=== PATIENT | female | born 2000 | race Caucasian/White ===

== ENCOUNTER 2018-11-04 10:16 | Emergency (ER) | payer MEDICAID ==
[~2018-11-04] VITALS: Ht 149.9 cm; Wt 58.0 kg
[2018-11-04 11:29] LABS: URINE HCG NEGATIVE (NEG)
[2018-11-04 11:40] LABS: CLARITY,URINE CLOUDY (Clear); COLOR,URINE YELLOW (Yellow); GLUCOSE, URINE NEGATIVE (Neg); KETONES,URINE NEGATIVE (Neg); LEUKOCYTE ESTERASE ,URINE MODERATE (Neg); NITRITES, URINE NEGATIVE (Neg); OCCULT BLOOD,URINE MODERATE (Neg); PROTEIN,URINE NEGATIVE (Neg); UROBILINOGEN,URINE 0.2 E.U/dL (0.2-1.0)
[2018-11-04 11:54] LABS: UA COLLECTION TYPE CLN CATCH MIDSTREAM
[2018-11-04 11:57] LABS: BACTERIA,URINE 3+ /HPF (Neg); MUCUS STRANDS MODERATE /LPF (Neg); SQUAMOUS EPITHELIAL CELL,UR MANY /LPF (FEW); WBC,URINE 50-100 /HPF (0-4)
--- NOTE | 2018-11-04 12:26 | NUR ---
PT STATES HX OF HYPOTENTION AND IS ASYMPTOMATIC. DR LIMON AWARE OF BP.
[2018-11-04 12:50] VITALS: BP 100/57
== END 2018-11-04 13:08 | disposition home or self-care (01) ==
LOC: ER 10:16
DX: N93.9 Abnormal uterine and vaginal bleeding, unspecified (principal); I10 Essential (primary) hypertension; Z96.9 Presence of functional implant, unspecified
CPT/HCPCS: 81001; 81025; 87210; 99283

== ENCOUNTER 2018-12-07 21:50 | Emergency (ER) | payer MEDICAID ==
[~2018-12-07] VITALS: Ht 149.9 cm; Wt 55.9 kg
--- NOTE | 2018-12-07 23:21 | NUR ---
[facility] orders pending for patient.
[2018-12-07 23:31] VITALS: BP 100/53
== END 2018-12-07 23:34 | disposition home or self-care (01) ==
LOC: ER 21:51
DX: S60.413A Abrasion of left middle finger, initial encounter (principal); W22.8XXA Striking against or struck by other objects, initial encounter; Y93.89 Activity, other specified; Y92.89 Other specified places as the place of occurrence of the external cause; Y99.8 Other external cause status
CPT/HCPCS: 29130; 73130; 99283

== ENCOUNTER 2019-03-20 15:53 | Emergency (ER) | payer MEDICAID, OTHER ==
[~2019-03-20] VITALS: Ht 149.9 cm; Wt 53.2 kg
[2019-03-20] MEDS ORDERED: morphine 4 MG/ML inj SYRINge IV ONE ×2 (16:50→18:25)
[2019-03-20] MEDS ORDERED: ondansetron/PF 4mg/2ml inj IV ONE (16:50)
[2019-03-20 17:09] LABS: BASOPHILS % (AUTO) 0.3 % (0-1); EOSINOPHILS # (AUTO) 0.1 X10'3 (0-0.9); EOSINOPHILS % (AUTO) 0.4 % (0-6); HEMATOCRIT 42.1 % (35.0-45.0); HEMOGLOBIN 14.4 g/dl (12.0-16.0); LYMPHOCYTES # (AUTO) 1.6 X10'3 (1.1-4.8); MEAN CORPUSCULAR HEMOGLOBIN 32.8 PG (27.0-31.0); MEAN CORPUSCULAR HGB CONC 34.3 g/dL (33.0-36.5); MEAN CORPUSCULAR VOLUME 95.7 FL (78-98); MEAN PLATELET VOLUME 6.9 FL (7.4-10.4); MONOCYTES % (AUTO) 6.1 % (2-12); NEUTROPHILS # (AUTO) 13.4 X10'3 (1.8-7.7); NEUTROPHILS % (AUTO) 83.2 % (42-75); PLATELET COUNT 311 X10'3 (140-440); RED CELL DISTRIBUTION WIDTH 13.6 % (11.5-14.5); WHITE BLOOD COUNT 16.1 X10'3 (4.5-11.0)
[2019-03-20 17:14] LABS: HCG SERUM QL NEGATIVE
[2019-03-20 17:18] LABS: PARTIAL THROMBOPLASTIN TIME 28 SECONDS (22-32)
[2019-03-20 17:23] LABS: ALANINE AMINOTRANSFERASE 21 U/L (12-78); ALBUMIN 4.4 G/DL (3.4-5.0); ALBUMIN/GLOBULIN RATIO 1.2 (1.1-1.5); ALKALINE PHOSPHATASE 71 IU/L (20-180); ANION GAP 14 (8-16); ASPARTATE AMINO TRANSFERASE 19 U/L (10-37); BILIRUBIN,TOTAL 0.7 MG/DL (0.1-1.0); BLOOD UREA NITROGEN 11 MG/DL (7-18); BUN/CREATININE RATIO 16.7 (6.6-38.0); CALCIUM 9.3 MG/DL (8.5-10.1); CHLORIDE 106 MMOL/L (99-107); CREATININE 0.66 MG/DL (0.40-0.90); GLUCOSE 81 MG/DL (70-104); POTASSIUM 3.3 MMOL/L (3.5-5.1); SODIUM 142 MMOL/L (135-145); TOTAL CARBON DIOXIDE 21.7 MMOL/L (24-32); TOTAL PROTEIN 8.2 G/DL (6.4-8.2); eGFR > 90 ML/MIN
[2019-03-20 17:35] LABS: CKMB RELATIVE INDEX 0.9 RATIO (0-2.5); CREATINE KINASE 142 U/L (26-192); TROPONIN I < 0.04 NG/ML (0.0-0.05)
--- NOTE | 2019-03-20 17:39 | NUR ---
Pt. transfered to CT by [facility] at this time.
[2019-03-20] MEDS ORDERED: iohexol 350MG/ML 100ml bottle IV ONE (17:42)
[2019-03-20] MEDS ORDERED: CYCL-1 PO (19:20)
[2019-03-20] MEDS ORDERED: IBUP-1984 PO (19:20)
[2019-03-20 19:23] LABS: URINE AMPHETAMINE SCREEN NEGATIVE (Neg); URINE BARBITUATE SCREEN NEGATIVE (Neg); URINE BENZODIAZEPINES SCREEN NEGATIVE (Neg); URINE CANNABINOID SCREEN POSITIVE (Neg); URINE COCAINE SCREEN NEGATIVE (Neg); URINE METHADONE SCREEN NEGATIVE (Neg); URINE OPIATE SCREEN POSITIVE (Neg); URINE PHENCYCLIDINE SCREEN NEGATIVE (Neg)
[2019-03-20 19:30] VITALS: BP 109/51
[2019-03-20 19:58] LABS: CLARITY,URINE CLEAR (Clear); COLOR,URINE YELLOW (Yellow); GLUCOSE, URINE NEGATIVE (Neg); KETONES,URINE 40 mg/dl (Neg); LEUKOCYTE ESTERASE ,URINE NEGATIVE (Neg); NITRITES, URINE NEGATIVE (Neg); OCCULT BLOOD,URINE SMALL (Neg); PH,URINE 6.5 (4.8-8.0); PROTEIN,URINE TRACE mg/dl (Neg); UROBILINOGEN,URINE 0.2 E.U/dL (0.2-1.0)
[2019-03-20 20:01] LABS: UA COLLECTION TYPE CLN CATCH MIDSTREAM
[2019-03-20 20:23] LABS: BACTERIA,URINE NONE SEEN /HPF (Neg); MUCUS STRANDS FEW /LPF (Neg); RBC,URINE 0-2 /HPF (0-2); SQUAMOUS EPITHELIAL CELL,UR FEW /LPF (FEW); WBC,URINE 0-4 /HPF (0-4)
== END 2019-03-20 19:33 | disposition home or self-care (01) ==
LOC: ER 15:53
DX: S16.1XXA Strain of muscle, fascia and tendon at neck level, initial encounter (principal); S20.319A Abrasion of unspecified front wall of thorax, initial encounter; M54.5 Low back pain; G89.29 Other chronic pain; M54.6 Pain in thoracic spine; R79.1 Abnormal coagulation profile; R10.9 Unspecified abdominal pain; Z79.899 Other long term (current) drug therapy; V29.9XXA Motorcycle rider (driver) (passenger) injured in unspecified traffic accident, initial encounter; Y93.89 Activity, other specified; Y92.89 Other specified places as the place of occurrence of the external cause; Y99.8 Other external cause status
CPT/HCPCS: 36415; 70498; 71045; 71260; 72125; 74177; 80053; 80305; 81001; 82550; 82553; 84484; 84703; 85025; 85610; 85730; 93005; 96374; 96375; 96376; 99284; J2270; J2405; Q9967

== ENCOUNTER 2019-05-11 14:20 | Emergency (ER) | payer MEDICAID ==
[~2019-05-11] VITALS: Ht 149.9 cm; Wt 52.0 kg
[~2019-05-11 14:20] MED LIST: CYCL-1 PO
[2019-05-11] MEDS ORDERED: METR500T PO (15:28)
[2019-05-11] MEDS ORDERED: CEPH500C5 PO (15:28)
== END 2019-05-11 15:52 | disposition home or self-care (01) ==
LOC: ER 14:20
DX: M53.3 Sacrococcygeal disorders, not elsewhere classified (principal); Z79.899 Other long term (current) drug therapy
CPT/HCPCS: 99283

== ENCOUNTER 2019-06-19 17:33 | Emergency (ER) | payer MEDICAID ==
[~2019-06-19] VITALS: Ht 149.9 cm; Wt 51.0 kg
[~2019-06-19 17:33] MED LIST changes: +CEPH500C5 PO
[2019-06-19 17:39] VITALS: BP 95/51
== END 2019-06-19 19:31 | disposition left against medical advice (07) ==
LOC: ER 17:34
DX: F41.9 Anxiety disorder, unspecified (principal); Z53.21 Procedure and treatment not carried out due to patient leaving prior to being seen by health care provider
CPT/HCPCS: 93005

== ENCOUNTER 2019-10-25 11:50 | Emergency (ER) | payer MEDICAID ==
[~2019-10-25] VITALS: Ht 149.9 cm; Wt 54.5 kg
[2019-10-25 11:53] VITALS: BP 113/64
[2019-10-25] MEDS ORDERED: acetaminophen 325mg tablet PO ONE (13:05)
== END 2019-10-25 13:16 | disposition home or self-care (01) ==
LOC: ER 11:50
DX: S00.01XA Abrasion of scalp, initial encounter (principal); Z72.89 Other problems related to lifestyle; Z79.899 Other long term (current) drug therapy; W01.0XXA Fall on same level from slipping, tripping and stumbling without subsequent striking against object, initial encounter; Y93.89 Activity, other specified; Y92.89 Other specified places as the place of occurrence of the external cause; Y99.8 Other external cause status
CPT/HCPCS: 99284

== ENCOUNTER 2019-12-29 19:49 | Emergency (ER) | payer MEDICAID ==
[~2019-12-29] VITALS: Ht 149.9 cm; Wt 55.0 kg
[2019-12-29] MEDS ORDERED: ketorolac tromethamine 15mg/ml inj. IM ONE (20:15)
[2019-12-29] MEDS ORDERED: orphenadrine citrate 60mg/2ml inj. IM ONE (20:15)
[2019-12-29] MEDS ORDERED: IBUP-1985 PO (20:16)
[2019-12-29] MEDS ORDERED: METH-360 PO (20:16)
--- NOTE | 2019-12-29 20:27 | NUR ---
administered meds and updated vitals, pt in no apparent distress playing on her phone
[2019-12-29 20:50] VITALS: BP 110/77
== END 2019-12-29 20:53 | disposition home or self-care (01) ==
LOC: ER 19:49
DX: M54.5 Low back pain (principal); G89.29 Other chronic pain; Z72.89 Other problems related to lifestyle; Z79.899 Other long term (current) drug therapy; W18.39XA Other fall on same level, initial encounter; Y93.89 Activity, other specified; Y92.89 Other specified places as the place of occurrence of the external cause; Y99.8 Other external cause status
CPT/HCPCS: 96372; 99284; J1885; J2360

== ENCOUNTER 2020-05-29 17:47 | Emergency (ER) | payer MEDICAID ==
[~2020-05-29] VITALS: Ht 162.6 cm; Wt 59.0 kg
[~2020-05-29 17:47] MED LIST changes: -CEPH500C5 PO; +IBUP-1985 PO; +METH-360 PO
[2020-05-29] MEDS ORDERED: TETanus/Pertussis (Acell)/Diphther VAC/PF (Tdap-Adult) 0.5ml syringe IMVAC ONE (17:55)
[2020-05-29] MEDS ORDERED: bacitracin 15gm ointment TP ONE (17:55)
[2020-05-29] MEDS ORDERED: ondansetron/PF 4mg/2ml inj IV ONE (17:55)
[2020-05-29] MEDS ORDERED: morphine 4 MG/ML inj SYRINge IV ONE (17:55)
[2020-05-29] MEDS ORDERED: iohexol 300mg/ml 100ml inj. ONE (17:56)
--- NOTE | 2020-05-29 18:10 | NUR ---
Pt was seen by [facility], reference #[id number] and informed [facility] to followup with pt
--- NOTE | 2020-05-29 18:14 | NUR ---
Pt taken to CT
[2020-05-29 18:36] LABS: HCG SERUM QL NEGATIVE
[2020-05-29 18:38] LABS: EOSINOPHILS % (AUTO) 0.2 % (0-6); PARTIAL THROMBOPLASTIN TIME 27 SECONDS (22-32); RED CELL DISTRIBUTION WIDTH 13.5 % (11.5-14.5); WHITE BLOOD COUNT 9.9 X10'3 (4.5-11.0)
[2020-05-29 18:39] LABS: BASOPHILS # (AUTO) 0.1 X10'3 (0-0.2); BASOPHILS % (AUTO) 0.6 % (0-1); HEMATOCRIT 42.9 % (35.0-45.0); HEMOGLOBIN 14.4 g/dl (12.0-16.0); LYMPHOCYTES # (AUTO) 1.8 X10'3 (1.1-4.8); LYMPHOCYTES % (AUTO) 18.6 % (21-51); MEAN CORPUSCULAR HEMOGLOBIN 32.9 PG (27.0-31.0); MEAN CORPUSCULAR HGB CONC 33.7 g/dL (33.0-36.5); MEAN CORPUSCULAR VOLUME 97.6 FL (78-98); MEAN PLATELET VOLUME 7.1 FL (7.4-10.4); MONOCYTES # (AUTO) 0.6 X10'3 (0-0.9); NEUTROPHILS # (AUTO) 7.4 X10'3 (1.8-7.7); NEUTROPHILS % (AUTO) 74.6 % (42-75); PLATELET COUNT 303 X10'3 (140-440); RED BLOOD COUNT 4.39 X10'6 (4.20-5.60)
[2020-05-29 18:41] LABS: ALANINE AMINOTRANSFERASE 22 U/L (12-78); ALBUMIN 4.8 G/DL (3.4-5.0); ALBUMIN/GLOBULIN RATIO 1.4 (1.1-1.5); ALKALINE PHOSPHATASE 56 IU/L (46-116); ANION GAP 13 (8-16); ASPARTATE AMINO TRANSFERASE 22 U/L (10-37); BILIRUBIN,TOTAL 0.8 MG/DL (0.1-1.0); BLOOD UREA NITROGEN 13 MG/DL (7-18); BUN/CREATININE RATIO 18.3 (6.6-38.0); CALCIUM 9.5 MG/DL (8.5-10.1); CHLORIDE 105 MMOL/L (99-107); CREATININE 0.71 MG/DL (0.40-0.90); GLUCOSE 79 MG/DL (70-104); POTASSIUM 3.4 MMOL/L (3.5-5.1); SODIUM 140 MMOL/L (135-145); TOTAL CARBON DIOXIDE 22.1 MMOL/L (24-32); TOTAL PROTEIN 8.3 G/DL (6.4-8.2); eGFR > 90 ML/MIN
[2020-05-29 18:53] LABS: CREATINE KINASE 89 U/L (26-192); ETHANOL < 0.010 GM/DL (0.0-0.010); LIPASE 79 U/L (73-393); TROPONIN I < 0.04 NG/ML (0.0-0.05)
[2020-05-29 19:31] VITALS: BP 101/63
== END 2020-05-29 19:33 | disposition home or self-care (01) ==
LOC: ER 17:48
DX: S00.81XA Abrasion of other part of head, initial encounter (principal); G89.29 Other chronic pain; M54.9 Dorsalgia, unspecified; R10.9 Unspecified abdominal pain; M79.604 Pain in right leg; M79.605 Pain in left leg; Z79.899 Other long term (current) drug therapy; V49.9XXA Car occupant (driver) (passenger) injured in unspecified traffic accident, initial encounter; Y93.89 Activity, other specified; Y92.89 Other specified places as the place of occurrence of the external cause; Y99.8 Other external cause status
CPT/HCPCS: 36415; 70450; 70486; 71260; 72125; 74177; 80053; 80320; 82550; 82553; 83690; 84484; 84703; 85025; 85610; 85730; 86885; 86900; 86901; 90471; 90715; 93005; 96374; 96375; 99285; J2270; J2405; Q9967

== ENCOUNTER 2020-09-23 12:45 | Emergency (ER) | payer MEDICAID ==
[~2020-09-23] VITALS: Ht 149.9 cm; Wt 52.3 kg
[2020-09-23] MEDS ORDERED: hydrOXYzine 25 MG tablet PO ONE (14:45)
[2020-09-23 15:05] LABS: BASOPHILS % (AUTO) 0.2 % (0-1); EOSINOPHILS % (AUTO) 0.1 % (0-6); HEMATOCRIT 41.6 % (35.0-45.0); LYMPHOCYTES # (AUTO) 1.3 X10'3 (1.1-4.8); LYMPHOCYTES % (AUTO) 11.2 % (21-51); MEAN CORPUSCULAR HEMOGLOBIN 32.9 PG (27.0-31.0); MEAN CORPUSCULAR HGB CONC 33.6 g/dL (33.0-36.5); MEAN CORPUSCULAR VOLUME 97.9 FL (78-98); MEAN PLATELET VOLUME 6.4 FL (7.4-10.4); MONOCYTES # (AUTO) 0.7 X10'3 (0-0.9); NEUTROPHILS # (AUTO) 9.4 X10'3 (1.8-7.7); NEUTROPHILS % (AUTO) 82.5 % (42-75); PLATELET COUNT 306 X10'3 (140-440); RED BLOOD COUNT 4.25 X10'6 (4.20-5.60); RED CELL DISTRIBUTION WIDTH 13.4 % (11.5-14.5); WHITE BLOOD COUNT 11.4 X10'3 (4.5-11.0)
[2020-09-23 15:20] LABS: D-DIMER 0.24 MG/L FEU (0-0.50)
[2020-09-23 15:34] LABS: ALANINE AMINOTRANSFERASE 25 U/L (12-78); ALBUMIN 4.7 G/DL (3.4-5.0); ALBUMIN/GLOBULIN RATIO 1.3 (1.1-1.5); ALKALINE PHOSPHATASE 55 IU/L (46-116); ANION GAP 17 (8-16); ASPARTATE AMINO TRANSFERASE 23 U/L (10-37); BLOOD UREA NITROGEN 18 MG/DL (7-18); BUN/CREATININE RATIO 27.3 (6.6-38.0); CALCIUM 9.5 MG/DL (8.5-10.1); CHLORIDE 99 MMOL/L (99-107); CREATININE 0.66 MG/DL (0.40-0.90); GLUCOSE 55 MG/DL (70-104); POTASSIUM 3.6 MMOL/L (3.5-5.1); SODIUM 134 MMOL/L (135-145); TOTAL CARBON DIOXIDE 18.3 MMOL/L (24-32); TOTAL PROTEIN 8.3 G/DL (6.4-8.2); eGFR > 90 ML/MIN
[2020-09-23 16:04] VITALS: BP 97/59
== END 2020-09-23 16:06 | disposition home or self-care (01) ==
LOC: ER 12:45
DX: F41.9 Anxiety disorder, unspecified (principal); R06.02 Shortness of breath; R07.89 Other chest pain; R11.0 Nausea; R10.13 Epigastric pain; G89.29 Other chronic pain; Z72.89 Other problems related to lifestyle; Z79.899 Other long term (current) drug therapy
CPT/HCPCS: 36415; 80053; 84484; 85025; 85379; 93005; 99284; Q0177

== ENCOUNTER 2021-05-05 14:54 | Emergency (ER) | payer MEDICAID ==
[~2021-05-05] VITALS: Ht 149.9 cm; Wt 56.0 kg
[2021-05-05] MEDS ORDERED: NO HOME MEDS (15:12)
[2021-05-05] MEDS ORDERED: mupirocin 2% ointment 22GM TP ONE (15:40)
[2021-05-05 15:42] LABS: BASOPHILS # (AUTO) 0.1 X10'3 (0-0.2); BASOPHILS % (AUTO) 0.6 % (0-1); EOSINOPHILS # (AUTO) 0.1 X10'3 (0-0.9); EOSINOPHILS % (AUTO) 0.6 % (0-6); HEMATOCRIT 40.3 % (35.0-45.0); HEMOGLOBIN 13.8 g/dl (12.0-16.0); LYMPHOCYTES # (AUTO) 1.8 X10'3 (1.1-4.8); LYMPHOCYTES % (AUTO) 14.9 % (21-51); MEAN CORPUSCULAR HEMOGLOBIN 33.3 PG (27.0-31.0); MEAN CORPUSCULAR HGB CONC 34.2 g/dL (33.0-36.5); MEAN CORPUSCULAR VOLUME 97.5 FL (78-98); MEAN PLATELET VOLUME 6.9 FL (7.4-10.4); MONOCYTES # (AUTO) 0.8 X10'3 (0-0.9); MONOCYTES % (AUTO) 6.9 % (2-12); NEUTROPHILS # (AUTO) 9.2 X10'3 (1.8-7.7); PLATELET COUNT 309 X10'3 (140-440); RED BLOOD COUNT 4.13 X10'6 (4.20-5.60); RED CELL DISTRIBUTION WIDTH 13.2 % (11.5-14.5); WHITE BLOOD COUNT 11.9 X10'3 (4.5-11.0)
[2021-05-05 15:52] LABS: ALANINE AMINOTRANSFERASE 37 U/L (12-78); ALBUMIN 4.3 G/DL (3.4-5.0); ALBUMIN/GLOBULIN RATIO 1.2 (1.1-1.5); ALKALINE PHOSPHATASE 53 IU/L (46-116); ANION GAP 10 (8-16); ASPARTATE AMINO TRANSFERASE 28 U/L (10-37); BILIRUBIN,TOTAL 0.8 MG/DL (0.1-1.0); BLOOD UREA NITROGEN 18 MG/DL (7-18); BUN/CREATININE RATIO 28.1 (6.6-38.0); CALCIUM 9.2 MG/DL (8.5-10.1); CHLORIDE 108 MMOL/L (99-107); CREATININE 0.64 MG/DL (0.40-0.90); GLUCOSE 101 MG/DL (70-104); POTASSIUM 3.8 MMOL/L (3.5-5.1); SODIUM 142 MMOL/L (135-145); TOTAL CARBON DIOXIDE 24.3 MMOL/L (24-32); TOTAL PROTEIN 7.9 G/DL (6.4-8.2); eGFR > 90 ML/MIN
[2021-05-05 15:53] LABS: ETHANOL < 0.010 GM/DL (0.0-0.010)
[2021-05-05 16:08] LABS: URINE HCG NEGATIVE (NEG)
[2021-05-05 16:21] LABS: URINE AMPHETAMINE SCREEN NEGATIVE (Neg); URINE BARBITUATE SCREEN NEGATIVE (Neg); URINE BENZODIAZEPINES SCREEN NEGATIVE (Neg); URINE CANNABINOID SCREEN POSITIVE (Neg); URINE COCAINE SCREEN NEGATIVE (Neg); URINE METHADONE SCREEN NEGATIVE (Neg); URINE OPIATE SCREEN NEGATIVE (Neg); URINE PHENCYCLIDINE SCREEN NEGATIVE (Neg)
--- NOTE | 2021-05-05 19:20 | NUR ---
Pt is eating dinner. She is cooperative.
--- NOTE | 2021-05-05 23:46 | NUR ---
PT IS SLEEPING COMFORTABLY ON GURNEY. EQUAL RISE AND FALL OF CHEST.
--- NOTE | 2021-05-06 01:30 | NUR ---
PT SLEEPING COMFORTABLY ON HER RIGHT SIDE. EQUAL RISE AND FALL OF CHEST.
--- NOTE | 2021-05-06 02:30 | NUR ---
PT SAT UP, LOOKED AROUND THE ROOM, AND THEN LIED DOWN AGAIN TO SLEEP. NO COMPLAINTS FROM PT.
--- NOTE | 2021-05-06 03:30 | NUR ---
pt continues to sleep comfortably.
--- NOTE | 2021-05-06 04:30 | NUR ---
pt has been moved to [facility] d/t critical incoming pt, will continue to carefully monitor.
--- NOTE | 2021-05-06 06:00 | NUR ---
PATIENT' PACKET WAS SENT TO [facility].
--- NOTE | 2021-05-06 07:00 | NUR ---
Pt sleeping without signs of distress.
[2021-05-06 07:16] VITALS: BP 107/62
--- NOTE | 2021-05-06 09:00 | NUR ---
Pt sleeping without signs of distress.
--- NOTE | 2021-05-06 11:00 | NUR ---
Pt denying thoughts of harming self and is social on the phone with mom and boyfriend.
== END 2021-05-06 12:25 | disposition home or self-care (01) ==
LOC: ER 14:55
DX: S61.512A Laceration without foreign body of left wrist, initial encounter (principal); Z20.822 Contact with and (suspected) exposure to COVID-19; F32.9 Major depressive disorder, single episode, unspecified; F43.10 Post-traumatic stress disorder, unspecified; G89.29 Other chronic pain; Z72.89 Other problems related to lifestyle; X58.XXXA Exposure to other specified factors, initial encounter; Y93.89 Activity, other specified; Y92.89 Other specified places as the place of occurrence of the external cause; Y99.8 Other external cause status
CPT/HCPCS: 36415; 80053; 80305; 80320; 81025; 85025; 87635; 99285; C9803